=== PATIENT | female | born 1965 | race Caucasian/White ===

== ENCOUNTER 2020-06-26 14:04 | Outpatient (CLI) | payer MEDICARE, MEDICAID, SELFPAY ==
--- NOTE | ~2020-06-26 | MM_ITS ---
EXAMINATION: MM screening [facility] BI w nilda HISTORY: Screening TECHNIQUE: Craniocaudal and mediolateral oblique 3-D tomosynthesis images were obtained and synthetic 2-D images were generated. CAD analysis was submitted and interpreted. COMPARISON: Comparison to multiple prior studies sequentially, with oldest reviewed study dated 08/08. BREAST PARENCHYMAL COMPOSITION: There are scattered areas of fibroglandular density. FINDINGS: There is no evidence of suspicious mass, calcification, or architectural distortion to sugg est malignancy in either breast. There has been no suspicious interval change. IMPRESSION: 1. No mammographic evidence of malignancy. 2. Recommend routine screening mammography in one year. BI-RADS Category 1: Negative Reviewed, dictated and finalized at location A.
== END 2020-06-26 14:05 | disposition home or self-care (01) ==
LOC: ANHIMG 14:08
PROVIDERS: PCP Emergency Medicine; Visit Provider Nurse Practitioner
DX: Z12.31 Encounter for screening mammogram for malignant neoplasm of breast (principal)
CPT/HCPCS: 77063; 77067

== ENCOUNTER 2021-07-15 09:52 | Outpatient (CLI) | payer MEDICARE, MEDICAID, SELFPAY ==
--- NOTE | ~2021-07-15 | MM_ITS ---
EXAMINATION: MM screening [facility] BI w nilda HISTORY: Screening mammogram TECHNIQUE: Craniocaudal and mediolateral oblique 3-D tomosynthesis images were obtained and synthetic 2-D images were generated. CAD analysis was submitted and interpreted. COMPARISON: 06/26/2020, 07/11/2018, 04/15/2017 BREAST PARENCHYMAL COMPOSITION: The breasts are almost entirely fatty. FINDINGS: There is no evidence of suspicious mass, calcification, or architectural distortion to sugg est malignancy in either breast. There has been no suspicious interval change. IMPRESSION: 1. No mammographic evidence of malignancy. 2. Recommend routine screening mammography in one year. BI-RADS Category 1: Negative Reviewed, dictated and finalized at location A.
== END 2021-07-15 09:53 | disposition home or self-care (01) ==
PROVIDERS: PCP Internal Medicine; Visit Provider Internal Medicine
DX: Z12.31 Encounter for screening mammogram for malignant neoplasm of breast (principal)
CPT/HCPCS: 77063; 77067

== ENCOUNTER 2022-03-01 23:58 | Inpatient (IN) | payer MEDICARE, MEDICAID, SELFPAY ==
--- NOTE | ~2022-03-01 | XR_ITS ---
EXAMINATION: XR chest 2V DATE: 03/04/2022 13:45 INDICATION: Pneumonia. TECHNIQUE: Frontal and lateral views of the chest were obtained. COMPARISON: Chest single view 03/02/2022 FINDINGS: There are airspace opacities at the lung bases. No pleural effusion or pneumothorax. Cardio megaly is noted. IMPRESSION: 1. Airspace opacities at the lung bases, likely stable given the difference in patient positioning, c onsistent with atelectasis versus pneumonia. 2. Cardiomegaly. Reviewed, dictated and finalized at location A. IMPRESSION: 1. Airspace opacities at the lung bases, likely stable given the difference in patient positioning, consistent with atelectasis versus pneumonia. 2. Cardiomegaly.
--- NOTE | ~2022-03-01 | XR_ITS ---
EXAMINATION: XR chest 1V portable INDICATION: Shortness of breath TECHNIQUE: Portable AP chest at 0227 hours COMPARISON: None available FINDINGS: There are minimal airspace opacities of the lung bases. No pleural effusion or pneumothorax is identified. The cardiomediastinal silhouette is normal. IMPRESSION: 1. Bibasilar airspace opacities, consistent with atelectasis versus pneumonia. Reviewed, dictated and finalized at location A.
[2022-03-02] VITALS (27 sets, daily range): BP systolic 94–139; BP diastolic 43–77; PULSE 66–120; RESP 16–30; TEMP 36.8–37.4; O2SAT 86–100; BMI 46.8
[2022-03-02 01:17] LABS: Basophils Absolute Auto 0.1 K/mm3 (0.0-0.1); Basophils Percent Auto 0.6 % (0.2-1.2); Eosinophils Percent Auto 0.2 % (0-4.4); Hematocrit 37.4 % (37.0-47.0); Hemoglobin 11.9 g/dL (12.0-15.0); Immature Granulocyte Absolute 0.11 K/mm3 (0.00-0.031); Immature Granulocyte Percent A 0.6 % (0-0.5); Lymphocytes Absolute Auto 1.96 K/mm3 (0.9-3.2); Lymphocytes Percent Auto 10.7 % (18.3-44.2); Mean Corpuscular HGB Conc 31.8 g/dl (32-36); Mean Corpuscular Hemoglobin 32.7 pg (26-34); Mean Corpuscular Volume 102.7 fl (80-100); Mean Platelet Volume 10.4 fl (7.4-10.4); Monocytes Absolute Auto 1.2 K/mm3 (0.1-0.6); Monocytes Percent Auto 6.4 % (2.6-8.5); Neutrophils Absolute Auto 14.9 K/mm3 (1.3-6.7); Neutrophils Percent Auto 81.5 % (45.5-73.1); Platelet Count Result 290 k/mm3 (150-375); Red Blood Count 3.64 M/mm3 (4.2-5.4); Red Cell Distribution Width 14.5 % (11.5-14.5); White Blood Count 18.3 K/mm3 (4.5-10.0)
[2022-03-02 02:15] LABS: Alanine Aminotransferase 24 U/L (4-35); Albumin Level 3.5 g/dL (3.5-5.1); Alkaline Phosphatase 185 U/L (38-126); Anion Gap 6 mmol/L (8-16); Aspartate Amino Transferase 28 U/L (14-36); Bilirubin,Total 1.5 mg/dL (0.2-1.3); Blood Urea Nitrogen 15 mg/dL (7-17); Calcium 8.1 mg/dL (8.4-10.2); Carbon Dioxide 28 mmol/L (22-30); Chloride 98 mmol/L (98-107); Estimated Glomerular Filt Rate 57; Glucose 125 mg/dL (65-110); Sodium 132 mmol/L (137-145)
--- NOTE | 2022-03-02 02:58 | ED.GENADULT ---
HPI - General Adult General Chief complaint: Shortness of Breath/Dyspnea Stated complaint: low o2 sat, cough Time Seen by Provider: 03/02/22 00:45 History of Present Illness HPI narrative: 56-year-old female presenting to the emergency department for evaluation of hypoxia. Patient with history of severe MR and lives in a care facility. Facility states that the patient had a low pulse ox and has had a worsening cough for the last few days. Related Data Home Medications Medication Instructions Recorded Confirmed acetaminophen 325 mg capsule 325 mg PO Q6H PRN 09/25/20 03/02/22 atorvastatin 10 mg tablet 10 mg PO DAILY 09/25/20 03/02/22 bacitracin zinc 500 unit/gram 1 applic TOPICAL DAILY 09/25/20 03/02/22 topical ointment cholecalciferol (vitamin D3) 25 25 mcg PO DAILY 09/25/20 03/02/22 mcg (1,000 unit) capsule dextromethorphan-guaifenesin 10 10 ml PO Q4-6H PRN 09/25/20 03/02/22 mg-100 mg/5 mL oral liquid diphenhydramine HCl 25 mg capsule 25 mg PO Q6H PRN 09/25/20 03/02/22 fluoxetine 10 mg capsule 10 mg PO DAILY 09/25/20 03/02/22 hydrocortisone 1 % topical spray 1 applic TOPICAL BID PRN 09/25/20 03/02/22 montelukast 10 mg tablet 10 mg PO DAILY 09/25/20 03/02/22 nystatin 100,000 unit/gram topical 1 applic TOPICAL BID 09/25/20 03/02/22 powder vitamin B complex 1 tablet PO DAILY 09/25/20 03/02/22 levothyroxine 88 mcg PO DAILY 03/02/22 03/02/22 Allergies Allergy/AdvReac Type Severity Reaction Status Date / Time tetracycline Allergy Mild unknown Verified 03/02/22 00:36 Review of Systems Review of Systems: Patient is nonverbal ROS unobtainable: Yes unobtainable due to mental status PMFSH Social History Social History Smoking status: Never smoker Second hand tobacco smoke exposure: No Alcohol intake: never Substance use: never Spiritual care concerns: No Exam Narrative: APPEARANCE: Well appearing, no pain, no distress, well-nourished. HEAD: normocephalic, atraumatic. EYES: PERRLA/EOMI, conjunctivae clear. NECK: Supple. No adenopathy, no masses. RESPIRATORY: Decreased breath sounds bilaterally. CARDIOVASCULAR: Regular rate and rhythm without murmurs rubs or gallops. ABDOMINAL: Soft, nontender, nondistended, normal bowel sounds MUSCULOSKELETAL: Moves all extremities. Strength/ROM intact, No edema, No calf tenderness. NEURO: Alert. Grossly intact SKIN: Warm, dry. Normal Color Course Course Emergency Course: Patient was hypoxic to 85 to 87% on room air. Improved with oxygenation. Chest x-ray was concerning for a right lower lobe pneumonia. Patient was started on azithromycin and Rocephin. blood cultures are pending. Fever treated with p.o. Tylenol. Case was discussed with the hospitalist and patient was accepted for admission. Patient was stable at time. Vital Signs Vital signs: Vital Signs Temperature 99.0 F 03/02/22 00:02 Pulse Rate 113 H 03/02/22 00:02 Respiratory Rate 16 03/02/22 00:02 Blood Pressure 113/75 03/02/22 00:02 Pulse Oximetry 95 03/02/22 00:02 Temperature 99.4 F 03/02/22 05:20 Pulse Rate 108 H 03/02/22 05:20 Respiratory Rate 24 H 03/02/22 05:20 Blood Pressure 129/71 03/02/22 05:20 Pulse Oximetry 95 03/02/22 05:20 Medical Decision Making Vital Signs Vital Signs: Vital Signs Temperature 99.0 F 03/02/22 00:02 Pulse Rate 113 H 03/02/22 00:02 Respiratory Rate 16 03/02/22 00:02 Blood Pressure 113/75 03/02/22 00:02 Pulse Oximetry 95 03/02/22 00:02 Temperature 99.4 F 03/02/22 05:20 Pulse Rate 108 H 03/02/22 05:20 Respiratory Rate 24 H 03/02/22 05:20 Blood Pressure 129/71 03/02/22 05:20 Pulse Oximetry 95 03/02/22 05:20 Lab Data Lab results reviewed: Yes I reviewed the patient's lab results. Result diagrams: 03/02/22 01:11 03/02/22 01:36 Labs: Lab Results 03/02/22 03/02/22 03/02/22 Range/Units 01:11 01:36 02:54 WBC 18.3 H (4.5-10.0) K/mm3 RBC 3.64 L (4.2-5.4
[2022-03-02 03:35] LABS: Influenza A QL RT-PCR Negative (Negative); Influenza B QL RT-PCR Negative (Negative); SARS-CoV-2 RNA PCR Negative
[2022-03-02] MEDS: ACETAMINOPHEN 325 MG TABLET 650 MG PO (04:35)
--- NOTE | 2022-03-02 05:54 | ADMGEN ---
This patient, Hayde Escobar, was admitted to [facility] Surg Room 332-01at [id number]. Patient/family oriented to hospital policies and general routines including ID bracelet, bed and alarms, visiting hours, pain management, procedures, bathroom and other care routines, personal items, smoking policy, room service/diet, and visiting hours. Information on how to activate the Rapid Response Team has been discussed. Patient/Family are encouraged to report perceived risks to care and to ask questions if they do not understand what they are told or what they should do.
[2022-03-02] MEDS: TOLNAFTATE 1% POWDER 45 GM BTL 1 APPLIC TOPICAL ×2 (10:12→20:10)
[2022-03-02] MEDS: MONTELUKAST SODIUM 10 MG TABLET PO (10:13)
[2022-03-02] MEDS: VITAMIN B COMPLEX CAPSULE 1 CAP PO (10:13)
[2022-03-02] MEDS: ATORVASTATIN 10 MG TABLET PO (10:13)
[2022-03-02] MEDS: FLUoxetine HCL 10 MG CAPSULE PO (10:13)
[2022-03-02] MEDS: CHOLECALCIFEROL 1,000 UNITS TABLET 1000 UNITS PO (10:14)
--- NOTE | 2022-03-02 11:04 | PM.IMHP ---
H&P: HPI History of Present Illness Date/Time: 03/02/22 11:04 Patient is a 56-year-old female with a past medical history of hypothyroidism and severe MR. Patient presented to the hospital due to hypoxia. Patient is a poor historian and record is limited. Patient reportedly had a low pulse ox with a worsening cough for the last several days. While in the emergency department she was noted to be hypoxic on room air at 85-87%. She did have improved oxygenation. Chest x-ray was performed which revealed right lower lobe pneumonia and the patient was started on azithromycin and Rocephin. Blood cultures are pending. Patient also had a fever that was treated with Tylenol in the emergency department. Patient was admitted for further management of any blood. She will be treated with azithromycin Rocephin, breathing treatments. Chief Complaint: Acute hypoxic respiratory failure, community-acquired pneumonia Review of Systems Review of Systems: All systems reviewed & are unremarkable except as noted in HPI and below PMFSH Social History Social History (Updated 03/02/22 @ 11:25 by Prema Funk, [employer] SAL[employer] REPRESENTATIVE) Smoking status: Never smoker Second hand tobacco smoke exposure: No Alcohol intake: never Substance use: never Spiritual care concerns: No Meds Home Medications and Allergies Home Medications Medication Instructions Recorded Confirmed Type acetaminophen 325 mg capsule 325 mg PO Q6H PRN 09/25/20 03/02/22 History atorvastatin 10 mg tablet 10 mg PO DAILY 09/25/20 03/02/22 History bacitracin zinc 500 unit/gram 1 applic TOPICAL DAILY 09/25/20 03/02/22 History topical ointment cholecalciferol (vitamin D3) 25 25 mcg PO DAILY 09/25/20 03/02/22 History mcg (1,000 unit) capsule dextromethorphan-guaifenesin 10 10 ml PO Q4-6H PRN 09/25/20 03/02/22 History mg-100 mg/5 mL oral liquid diphenhydramine HCl 25 mg capsule 25 mg PO Q6H PRN 09/25/20 03/02/22 History fluoxetine 10 mg capsule 10 mg PO DAILY 09/25/20 03/02/22 History hydrocortisone 1 % topical spray 1 applic TOPICAL BID PRN 09/25/20 03/02/22 History montelukast 10 mg tablet 10 mg PO DAILY 09/25/20 03/02/22 History nystatin 100,000 unit/gram topical 1 applic TOPICAL BID 09/25/20 03/02/22 History powder vitamin B complex 1 tablet PO DAILY 09/25/20 03/02/22 History levothyroxine 88 mcg PO DAILY 03/02/22 03/02/22 History Allergies Allergy/AdvReac Type Severity Reaction Status Date / Time tetracycline Allergy Mild unknown Verified 03/02/22 00:36 Vital Signs Vital Signs - 24 hr 03/02/22 00:02 03/02/22 00:19 03/02/22 00:31 Temperature 99.0 F Pulse Rate 113 H 115 H 116 H Respiratory Rate 16 21 H 19 Blood Pressure 113/75 109/56 L 111/58 L Pulse Oximetry 95 93 93 03/02/22 02:20 03/02/22 02:30 03/02/22 02:31 Temperature Pulse Rate 116 H 120 H 117 H Respiratory Rate 28 H 20 20 Blood Pressure 139/70 123/43 L Pulse Oximetry 98 96 94 03/02/22 02:45 03/02/22 03:00 03/02/22 03:10 Temperature Pulse Rate 117 H 114 H Respiratory Rate 21 H 30 H Blood Pressure Pulse Oximetry 93 86 L 98 03/02/22 03:15 03/02/22 03:17 03/02/22 03:30 Temperature Pulse Rate 115 H 116 H 116 H Respiratory Rate 19 18 27 H Blood Pressure 96/58 L Pulse Oximetry 96 92 93 03/02/22 03:45 03/02/22 04:00 03/02/22 04:15 Temperature Pulse Rate 118 H 116 H 119 H Respiratory Rate 25 H 27 H 23 H Blood Pressure Pulse Oximetry 03/02/22 04:30 03/02/22 04:45 03/02/22 05:08 Temperature 98.9 F Pulse Rate 117 H 117 H 66 Respiratory Rate 26 H 24 H 17 Blood Pressure 99/60 L Pulse Oximetry 90 100 03/02/22 05:20 03/02/22 08:00 Temperature 99.4 F 98.2 F Pulse Rate 108 H 100 Respiratory Rate 24 H 20 Blood Pressure 129/71 104/50 L Pulse Oximetry 95 93 Exam Narrative: General: No acute distress. obese Mental Status: Awake, alert, non-verbal Skin: Skin in warm, dry and intact without rashes or lesions. Head: Normocephalic and at
[2022-03-02] MEDS: IPRATROPIUM BR 0.02% INH SOLN 0.5 MG/2.5 ML VIAL INHALATION ×2 (13:52→20:36)
[2022-03-03] VITALS (10 sets, daily range): BP systolic 98–145; BP diastolic 58–81; PULSE 86–111; RESP 16–28; TEMP 36.2–37.2; O2SAT 91–97
[2022-03-03 06:08] LABS: Alanine Aminotransferase 23 U/L (4-35); Albumin Level 3.4 g/dL (3.5-5.1); Alkaline Phosphatase 190 U/L (38-126); Anion Gap 7 mmol/L (8-16); Aspartate Amino Transferase 30 U/L (14-36); Bilirubin,Total 0.6 mg/dL (0.2-1.3); Blood Urea Nitrogen 14 mg/dL (7-17); Calcium 8.3 mg/dL (8.4-10.2); Carbon Dioxide 29 mmol/L (22-30); Chloride 101 mmol/L (98-107); Estimated Glomerular Filt Rate > 60; Glucose 148 mg/dL (65-110); Magnesium 2.2 mg/dL (1.6-2.3); Potassium 4.4 mmol/L (3.4-5.0); Sodium 137 mmol/L (137-145)
[2022-03-03 06:10] LABS: Basophils Absolute Auto 0.1 K/mm3 (0.0-0.1); Basophils Percent Auto 0.8 % (0.2-1.2); Eosinophils Absolute Auto 0.1 K/mm3 (0-0.3); Eosinophils Percent Auto 0.9 % (0-4.4); Hematocrit 38.9 % (37.0-47.0); Hemoglobin 12.4 g/dL (12.0-15.0); Immature Granulocyte Absolute 0.15 K/mm3 (0.00-0.031); Lymphocytes Absolute Auto 1.95 K/mm3 (0.9-3.2); Mean Corpuscular HGB Conc 31.9 g/dl (32-36); Mean Corpuscular Hemoglobin 32.7 pg (26-34); Mean Corpuscular Volume 102.6 fl (80-100); Mean Platelet Volume 10.5 fl (7.4-10.4); Monocytes Percent Auto 6.5 % (2.6-8.5); Neutrophils Absolute Auto 11.6 K/mm3 (1.3-6.7); Neutrophils Percent Auto 77.8 % (45.5-73.1); Platelet Count Result 322 k/mm3 (150-375); Red Blood Count 3.79 M/mm3 (4.2-5.4); Red Cell Distribution Width 14.4 % (11.5-14.5)
[2022-03-03] MEDS: ATORVASTATIN 10 MG TABLET PO (08:35)
[2022-03-03] MEDS: MONTELUKAST SODIUM 10 MG TABLET PO (08:36)
[2022-03-03] MEDS: FLUoxetine HCL 10 MG CAPSULE PO (08:37)
[2022-03-03] MEDS: CHOLECALCIFEROL 1,000 UNITS TABLET 1000 UNITS PO (08:38)
[2022-03-03] MEDS: VITAMIN B COMPLEX CAPSULE 1 CAP PO (08:40)
[2022-03-03] MEDS: TOLNAFTATE 1% POWDER 45 GM BTL 1 APPLIC TOPICAL ×2 (08:41→20:10)
--- NOTE | 2022-03-03 10:04 | PM.IMPN ---
Progress Note: A&P Assessment and Plan (1) Severe mental handicap: Code(s): F72 - Severe intellectual disabilities Status: Acute Assessment and Plan: Sitter, one-to-one (2) Obese: Code(s): E66.9 - Obesity, unspecified Status: Acute Assessment and Plan: Dietary consult (3) Depression: Code(s): F32.A - Depression, unspecified Status: Acute Assessment and Plan: Resume home medications (4) Hypothyroidism: Code(s): E03.9 - Hypothyroidism, unspecified Status: Acute Assessment and Plan: Resume Synthroid (5) Pneumonia: Qualifiers: Laterality: right Lung location: lower lobe of lung Pneumonia type: due to unspecified organism Qualified Code(s): J18.9 - Pneumonia, unspecified organism Code(s): J18.9 - Pneumonia, unspecified organism Status: Acute Assessment and Plan: Monitor vital signs, I&Os, neuro status and patient is a fall risk Follow WBC, serum electrolytes, temperature curves and cultures Send sputum cultures Oxygen via NC; wean as tolerated. Keep SpO2 greater than 88% Ceftriaxone 2 gram IV q24H and Azithromycin 500mg IV q24H DuoNeb q6H and Albuterol q2H PRN P.r.n. Tylenol, Zofran, and melatonin (6) Acute and chronic respiratory failure with hypoxia: Code(s): J96.21 - Acute and chronic respiratory failure with hypoxia Status: Acute Assessment and Plan: SpO2 85-87% in the emergency department, oxygen improved with supplemental oxygen per nasal cannula. --resolved Subjective Date/time seen: 03/03/22 10:04 patient remains nonverbal, this is the patient's baseline. She does to be in acute distress. Able to tolerate meals with assistance. Patient requires a one-to-one sitter. She remains on azithromycin Rocephin, possibly transition to oral antibiotics on 03/04/2022. No acute events reported by RN during the night Review of Systems Review of Systems: All systems reviewed & are unremarkable except as noted in HPI and below Exam Narrative: General: No acute distress. obese Mental Status: Awake, alert, non-verbal Skin: Skin in warm, dry and intact without rashes or lesions. Head: Normocephalic and atraumatic. Eyes: Conjunctivae are clear without exudates or hemorrhage. Sclera is non-icteric. EOM are intact, PERRLA. Ears: The external ear and canal are non-tender and without swelling or discharge. Nose: Nasal mucosa is pink and moist. Septum midline. Nares patent bilaterally. Throat: Oral mucosa pink and moist with good dentition. Tongue midline. Neck: The neck supple without adenopathy. Trachea midline. No JVD. Cardiac: S1 and S2 regular rate and rhythm. No murmurs, gallops, or rubs auscultated. Respiratory: Chest wall symmetric, nontender and without deformity or trauma. Respirations even and unlabored. Lung sounds are diminished to auscultation in all lobes bilaterally without wheezes, rhonchi, or rales. Abdominal: Abdomen soft, round and non-tender to palpation. Bowel sounds present and normoactive in all 4 quadrants. Spine: Neck and back with grossly normal curvature, no deformity in appearance or signs of trauma. Extremities: Upper and lower extremities atraumatic without tenderness or deformity. Full range of motion and muscle strength 4/5 to all extremities bilaterally. Neurological: Full and symmetric motor and light touch sensation bilaterally. Cranial nerves II-XII grossly intact. Objective Data Vital Signs Vital Signs: Vital Signs - 24 hr 03/02/22 12:00 03/02/22 13:52 03/02/22 14:01 Temperature 98.4 F Pulse Rate 82 82 80 Respiratory Rate 21 H 16 16 Blood Pressure 94/56 L Pulse Oximetry 94 03/02/22 16:00 03/02/22 20:36 03/02/22 20:43 Temperature 98.6 F Pulse Rate 90 97 101 H Respiratory Rate 20 18 16 Blood Pressure 113/77 Pulse Oximetry 91 91 03/02/22 22:00 03/03/22 06:00 03/03/22 07:48 Temperature 98.9 F 99 F 99.0 F Pulse Rate 95 108 H 111 H
[2022-03-03] MEDS: LEVOTHYROXINE SODIUM 88 MCG TABLET PO (10:23)
--- NOTE | 2022-03-03 11:58 | PCRCNOTE ---
Window of time for administration has passed. See next scheduled administration.
--- NOTE | 2022-03-03 14:08 | PC.NURSE ---
On 03/03/22, the student, Haroon Prather, provided care and completed [facility] documentation on this patient. I have reviewed the student's documentation and agree with the findings.
[2022-03-03] MEDS: IPRATROPIUM BR 0.02% INH SOLN 0.5 MG/2.5 ML VIAL INHALATION ×2 (15:32→19:52)
[2022-03-04] VITALS (11 sets, daily range): BP systolic 96–135; BP diastolic 58–81; PULSE 81–103; RESP 18–20; TEMP 36.4–36.7; O2SAT 91–98
[2022-03-04 05:46] LABS: Basophils Absolute Auto 0.2 K/mm3 (0.0-0.1); Basophils Percent Auto 1.4 % (0.2-1.2); Eosinophils Absolute Auto 0.2 K/mm3 (0-0.3); Eosinophils Percent Auto 1.8 % (0-4.4); Hematocrit 39.9 % (37.0-47.0); Hemoglobin 12.9 g/dL (12.0-15.0); Immature Granulocyte Absolute 0.22 K/mm3 (0.00-0.031); Immature Granulocyte Percent A 2.1 % (0-0.5); Lymphocytes Absolute Auto 2.15 K/mm3 (0.9-3.2); Lymphocytes Percent Auto 20.1 % (18.3-44.2); Mean Corpuscular HGB Conc 32.3 g/dl (32-36); Mean Corpuscular Hemoglobin 33.2 pg (26-34); Mean Corpuscular Volume 102.8 fl (80-100); Mean Platelet Volume 10.2 fl (7.4-10.4); Neutrophils Absolute Auto 7.1 K/mm3 (1.3-6.7); Neutrophils Percent Auto 65.6 % (45.5-73.1); Platelet Count Result 341 k/mm3 (150-375); Red Blood Count 3.88 M/mm3 (4.2-5.4); Red Cell Distribution Width 14.5 % (11.5-14.5); White Blood Count 10.7 K/mm3 (4.5-10.0)
[2022-03-04 05:59] LABS: Alanine Aminotransferase 31 U/L (4-35); Albumin Level 3.2 g/dL (3.5-5.1); Alkaline Phosphatase 179 U/L (38-126); Anion Gap 5 mmol/L (8-16); Aspartate Amino Transferase 35 U/L (14-36); Bilirubin,Total 0.4 mg/dL (0.2-1.3); Blood Urea Nitrogen 11 mg/dL (7-17); Calcium 8.2 mg/dL (8.4-10.2); Carbon Dioxide 30 mmol/L (22-30); Chloride 101 mmol/L (98-107); Estimated Glomerular Filt Rate > 60; Glucose 135 mg/dL (65-110); Potassium 4.2 mmol/L (3.4-5.0); Sodium 136 mmol/L (137-145)
[2022-03-04] MEDS: LEVOTHYROXINE SODIUM 88 MCG TABLET PO (06:04)
[2022-03-04] MEDS: IPRATROPIUM BR 0.02% INH SOLN 0.5 MG/2.5 ML VIAL INHALATION ×3 (08:00→20:47)
--- NOTE | 2022-03-04 08:25 | PM.IMPN ---
Progress Note: A&P Assessment and Plan (1) Severe mental handicap: Code(s): F72 - Severe intellectual disabilities Status: Acute Assessment and Plan: Sitter, one-to-one Calm and pleasant, receptive to exam No behavior concerns at this time Eating and drinking well per nursing report Urinary incontinence monitored with intake and output (2) Obese: Code(s): E66.9 - Obesity, unspecified Status: Acute Assessment and Plan: Dietary consult Chronic and difficult to treat with mental handicap and learning difficulties (3) Depression: Code(s): F32.A - Depression, unspecified Status: Acute Assessment and Plan: Resume home medications Pleasant no concerns at this time Euthymic mood (4) Hypothyroidism: Code(s): E03.9 - Hypothyroidism, unspecified Status: Acute Assessment and Plan: Resume Synthroid Resume home medications Pleasant no concerns at this time Euthymic mood (5) Pneumonia: Qualifiers: Laterality: right Lung location: lower lobe of lung Pneumonia type: due to unspecified organism Qualified Code(s): J18.9 - Pneumonia, unspecified organism Code(s): J18.9 - Pneumonia, unspecified organism Status: Acute Assessment and Plan: Monitor vital signs, I&Os, neuro status and patient is a fall risk Blood cultures x2 showed no growth. White count dropped from 18.3 to 10.7. No fevers or chills today. Send sputum cultures Oxygen via NC; wean as tolerated. Keep SpO2 greater than 88% Ceftriaxone 2 gram IV q24H for a minimum of 5 days AND Azithromycin 500mg IV q24H for a minimum of 3 days and 3 doses. DuoNeb q6H and Albuterol q2H PRN P.r.n. Tylenol, Zofran, and melatonin Total bilirubin also improved from 1.5 to WNL. COVID and influenza negative. Chest x-ray at admission on 03/02 showed opacites. Started on IV Azithromycin and Rocephin on 03/03, received 2 doses to date. Ceftriaxone 2 gram IV q24H for a minimum of 5 days AND Azithromycin 500mg IV q24H for a minimum of 3 days and 3 doses. Chest x-ray obtained today 03/04 was stable. SpO2 92-98% on room air today, with RR 18. No cough or congestion noted during exam. (6) Acute and chronic respiratory failure with hypoxia: Code(s): J96.21 - Acute and chronic respiratory failure with hypoxia Status: Acute Assessment and Plan: SpO2 85-87% in the emergency department, oxygen improved with supplemental oxygen per nasal cannula. Chest x-ray obtained today 03/04 was stable. SpO2 92-98% on room air today, with RR 18. No cough or congestion noted during exam. --resolved Subjective Date/time seen: 03/04/22 08:25 Hayde was sitting up in a chair today when I went to examine her. She was nonverbal today. She seemed pleasant and did allow me to complete her exam. She would not nod or shake her head to any of my questions. Having incontinence of urine in diapers x2 today, no measurable urine output and no UA obtained. Blood cultures x2 showed no growth. White count dropped from 18.3 to 10.7. No fevers or chills today. Total bilirubin also improved from 1.5 to WNL. COVID and influenza negative. Chest x-ray at admission on 03/02 showed opacites. Started on IV Azithromycin and Rocephin on 03/03, received 2 doses to date. Ceftriaxone 2 gram IV q24H for a minimum of 5 days AND Azithromycin 500mg IV q24H for a minimum of 3 days and 3 doses. Chest x-ray obtained today was stable. SpO2 92-98% on room air today, with RR 18. No cough or congestion noted during exam. She did not appear to have any pain even with palpation, abdomen soft. Likely discharge on 03/07. Review of Systems Review of Systems: All systems reviewed & are unremarkable except as noted in HPI and below ROS unobtainable: Yes unobtainable due to mental status Constitutional: Constitutional: Reports as per HPI, Denies excessive sweating, Denies headache(s), Denies increased appetite, Denies snoring,
[2022-03-04] MEDS: MONTELUKAST SODIUM 10 MG TABLET PO (08:28)
[2022-03-04] MEDS: VITAMIN B COMPLEX CAPSULE 1 CAP PO (08:29)
[2022-03-04] MEDS: ATORVASTATIN 10 MG TABLET PO (08:29)
[2022-03-04] MEDS: CHOLECALCIFEROL 1,000 UNITS TABLET 1000 UNITS PO (08:29)
[2022-03-04] MEDS: TOLNAFTATE 1% POWDER 45 GM BTL 1 APPLIC TOPICAL ×2 (08:29→19:57)
[2022-03-04] MEDS: FLUoxetine HCL 10 MG CAPSULE PO (08:29)
[2022-03-05] VITALS (7 sets, daily range): BP systolic 114; BP diastolic 77; PULSE 88–96; RESP 14–20; TEMP 36.7; O2SAT 97
[2022-03-05] MEDS: IPRATROPIUM BR 0.02% INH SOLN 0.5 MG/2.5 ML VIAL INHALATION ×3 (01:48→13:02)
[2022-03-05 05:51] LABS: Basophils Absolute Auto 0.1 K/mm3 (0.0-0.1); Basophils Percent Auto 1.3 % (0.2-1.2); Eosinophils Absolute Auto 0.2 K/mm3 (0-0.3); Eosinophils Percent Auto 2.3 % (0-4.4); Hematocrit 39.9 % (37.0-47.0); Hemoglobin 12.7 g/dL (12.0-15.0); Immature Granulocyte Absolute 0.24 K/mm3 (0.00-0.031); Immature Granulocyte Percent A 2.6 % (0-0.5); Lymphocytes Absolute Auto 1.86 K/mm3 (0.9-3.2); Lymphocytes Percent Auto 20.4 % (18.3-44.2); Mean Corpuscular HGB Conc 31.8 g/dl (32-36); Mean Corpuscular Hemoglobin 33.1 pg (26-34); Mean Corpuscular Volume 103.9 fl (80-100); Mean Platelet Volume 10.2 fl (7.4-10.4); Monocytes Absolute Auto 0.7 K/mm3 (0.1-0.6); Monocytes Percent Auto 7.3 % (2.6-8.5); Neutrophils Percent Auto 66.1 % (45.5-73.1); Platelet Count Result 378 k/mm3 (150-375); Red Blood Count 3.84 M/mm3 (4.2-5.4); Red Cell Distribution Width 14.3 % (11.5-14.5); White Blood Count 9.1 K/mm3 (4.5-10.0)
[2022-03-05 05:59] LABS: Alanine Aminotransferase 27 U/L (4-35); Albumin Level 3.1 g/dL (3.5-5.1); Alkaline Phosphatase 139 U/L (38-126); Anion Gap 5 mmol/L (8-16); Aspartate Amino Transferase 39 U/L (14-36); Bilirubin,Total 0.5 mg/dL (0.2-1.3); Blood Urea Nitrogen 10 mg/dL (7-17); Calcium 7.9 mg/dL (8.4-10.2); Carbon Dioxide 30 mmol/L (22-30); Chloride 100 mmol/L (98-107); Estimated Glomerular Filt Rate > 60; Glucose 135 mg/dL (65-110); Potassium 4.8 mmol/L (3.4-5.0); Sodium 135 mmol/L (137-145)
[2022-03-05] MEDS: LEVOTHYROXINE SODIUM 88 MCG TABLET PO (06:12)
[2022-03-05] MEDS: FLUoxetine HCL 10 MG CAPSULE PO (08:48)
[2022-03-05] MEDS: ATORVASTATIN 10 MG TABLET PO (08:48)
[2022-03-05] MEDS: MONTELUKAST SODIUM 10 MG TABLET PO (08:48)
[2022-03-05] MEDS: VITAMIN B COMPLEX CAPSULE 1 CAP PO (08:48)
[2022-03-05] MEDS: CHOLECALCIFEROL 1,000 UNITS TABLET 1000 UNITS PO (08:48)
[2022-03-05] MEDS: TOLNAFTATE 1% POWDER 45 GM BTL 1 APPLIC TOPICAL (08:48)
--- NOTE | 2022-03-05 09:43 | PM.DS ---
DS: Admitting Diagnosis Discharge Date 03/05/2022 Admitting Diagnosis Pneumonia DS: Discharge Diagnosis Discharge Diagnosis (1) Acute and chronic respiratory failure with hypoxia: Code(s): J96.21 - Acute and chronic respiratory failure with hypoxia Status: Resolved Assessment and Plan: Resolved. Patient was hypoxic on presentation with SpO2 85-87%, felt to be secondary to pneumonia. She did require 2 L supplemental O2 briefly on admission but was able to be weaned to room air and maintained adequate oxygen saturations. (2) Pneumonia: Qualifiers: Laterality: right Lung location: lower lobe of lung Pneumonia type: due to unspecified organism Qualified Code(s): J18.9 - Pneumonia, unspecified organism Code(s): J18.9 - Pneumonia, unspecified organism Status: Acute Assessment and Plan: Presented with increased shortness of breath. CXR on presentation showed bibasilar airspace opacities. She was admitted to the hospitalist service and treated with IV ceftriaxone and azithromycin for community-acquired pneumonia. She was able to be weaned from oxygen. COVID-19 testing was negative. Influenza negative. Supportive care provided. Preliminary blood cultures negative after 4 days, will monitor final cultures. Follow-up CXR on 413 showed stable opacities. Clinically patient was improved. Continue p.o. cefdinir to complete 7 days and p.o. azithromycin to complete 5 days. (3) Severe mental handicap: Code(s): F72 - Severe intellectual disabilities Status: Acute Assessment and Plan: Chronic, unchanged. Patient [facility] in a prison. She is nonverbal. (4) Depression: Code(s): F32.A - Depression, unspecified Status: Acute Assessment and Plan: No issues during hospitalization. Continue home fluoxetine (5) Hypothyroidism: Code(s): E03.9 - Hypothyroidism, unspecified Status: Acute Assessment and Plan: Continue home levothyroxine DS: Summary Hospital Course Hospital Course: Date of service: 03/02/2022 Date of discharge: 03/05/2022 Hayde Escobar is a 56-year-old female with a history of hypothyroidism and mental handicap who is nonverbal at baseline presented to the ED on 03/02/2022 [facility] for evaluation of hypoxia with worsening for a couple days. On presentation she was satting 85-87% on room air and improved with supplemental oxygen. She was admitted to the hospitalist service for further evaluation and management. Please see above for further details. She had clinical improvement with antibiotic therapy. She was feeling better and based on overall improvement, she was determined to no longer require inpatient care and was discharged in hemodynamically stable condition on 03/05/2022. Status at Discharge Overall status at discharge: patient is progressing back to baseline Time Spent with Patient Time attestation: Total time spent providing and/or coordinating discharge services: 45 minutes Time spent: Greater than 30 minutes Exam Narrative: General: Obese, well-appearing 56 year-old female, sitting in a chair by the bedside, comfortable, NARD Neuro: awake, alert, patient is nonverbal and does not respond to any questions, no focal neuro deficits noted HEENMT: normocephalic, atraumatic, EOMI, sclerae anicteric Respiratory: clear to auscultation bilaterally, nonlabored breathing Cardio: regular rate, regular rhythm with S1-S2 Abdomen: nondistended, normoactive bowel sounds, soft, nontender to palpation Extremities: no edema or erythema Skin: no rashes or lesions, warm and dry Psych: Pleasant, cooperative DS: Data Data Completed and Pending Labs on day of discharge: Labs from last 24 hours 03/05/22 03/05/22 05:23 05:23 WBC 9.1 RBC 3.84 L Hgb 12.7 Hct 39.9 MCV 103.9 H MCH 33.1 MCHC 31.8 L RDW 14.3 Plt Count 378 H MPV 10.2 Immature Gran % (Auto)
== END 2022-03-05 13:40 | disposition home or self-care (01) | DRG 193 ==
LOC: ANHED 03-02 04:30 → ANH3MEDSUR 03-02 04:39
PROVIDERS: Nurse Practitioner Family; Admitting Provider Internal Medicine; Emergency Provider Emergency Medicine; PCP Internal Medicine; Visit Provider Family Medicine
DX: J18.9 Pneumonia, unspecified organism (principal); J96.21 Acute and chronic respiratory failure with hypoxia; F72 Severe intellectual disabilities; Z68.42 Body mass index [BMI] 45.0-49.9, adult; E03.9 Hypothyroidism, unspecified; E66.9 Obesity, unspecified; F32.A Depression, unspecified; R32 Unspecified urinary incontinence; Z20.822 Contact with and (suspected) exposure to COVID-19
CPT/HCPCS: 36415; 71045; 71046; 80053; 83735; 85025; 87040; 87502; 94640; 99285; A9270; C9803; J0456; J0696; U0003; U0005

== ENCOUNTER 2022-08-20 09:32 | Outpatient (CLI) | payer MEDICARE, MEDICAID, SELFPAY ==
--- NOTE | ~2022-08-20 | MM_ITS ---
EXAMINATION: MM screening [facility] BI w nilda HISTORY: Screening mammogram TECHNIQUE: Craniocaudal and mediolateral oblique 3-D tomosynthesis images were obtained and synthetic 2-D images were generated. CAD analysis was submitted and interpreted. COMPARISON: 07/11/2021, 06/26/2020, 07/11/2018 bilateral screening mammogram examinations BREAST PARENCHYMAL COMPOSITION: The breasts are almost entirely fatty. FINDINGS: There is no evidence of suspicious mass, calcification, or architectural distortion to sugg est malignancy in either breast. There has been no suspicious interval change. IMPRESSION: 1. No mammographic evidence of malignancy. 2. Recommend routine screening mammography in one year. BI-RADS Category 1: Negative Reviewed, dictated and finalized at location A.
== END 2022-08-20 09:33 | disposition home or self-care (01) ==
PROVIDERS: PCP Internal Medicine; Visit Provider Internal Medicine
DX: Z12.31 Encounter for screening mammogram for malignant neoplasm of breast (principal)
CPT/HCPCS: 77063; 77067

== ENCOUNTER 2023-05-06 10:46 | Emergency (ER) | payer MEDICARE, MEDICAID, SELFPAY ==
[2023-05-06 10:58] VITALS: BP 136/77; PULSE 68; RESP 16; TEMP 36.2; O2SAT 100
--- NOTE | 2023-05-06 11:15 | ED.EYEPROB ---
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 Denies purulent discharge, but does report some tearing. Patient has history of Alzheimer's, severe intellectual disability and lives in a intermediate. She is nonverbal. Medical history also reports that she has allergic rhinitis and, ?ocular allergies?. Patient takes Singulair and p.r.n. diphenhydramine for her allergy symptoms. She was recently on a 10 day course of Claritin for her allergies as well, but this ended 3 days ago. Related Data Home Medications Medication Instructions Recorded Confirmed acetaminophen 325 mg capsule 325 mg PO Q6H PRN Pain 09/25/20 05/06/23 atorvastatin 10 mg tablet 10 mg PO DAILY 09/25/20 05/06/23 bacitracin zinc 500 unit/gram 1 applic topical DAILY 09/25/20 05/06/23 topical ointment (Antibiotic (bacitracin zinc)) cholecalciferol (vitamin D3) 25 25 mcg PO DAILY 09/25/20 05/06/23 mcg (1,000 unit) capsule dextromethorphan-guaifenesin 10 10 ml PO Q4-6H PRN Cold Symptoms 09/25/20 05/06/23 mg-100 mg/5 mL oral liquid (Robafen DM Cough) diphenhydramine HCl 25 mg capsule 25 mg PO Q6H PRN Allergy Symptoms 09/25/20 05/06/23 (Allergy (diphenhydramine)) fluoxetine 10 mg capsule 10 mg PO DAILY 09/25/20 05/06/23 hydrocortisone 1 % topical spray 1 applic topical BID PRN Itching 09/25/20 05/06/23 (Anti-Itch (hydrocortisone)) montelukast 10 mg tablet 10 mg PO DAILY 09/25/20 05/06/23 nystatin 100,000 unit/gram topical 1 applic topical BID 09/25/20 05/06/23 powder vitamin B complex (B 1 tablet PO DAILY 09/25/20 05/06/23 Complex-Vitamin B12 tablet) levothyroxine 88 mcg tablet 88 mcg PO DAILY 03/02/22 05/06/23 Allergies Allergy/AdvReac Type Severity Reaction Status Date / Time tetracycline Allergy Mild unknown Verified 05/06/23 11:02 Review of Systems Review of Systems: CONSTITUTIONAL: Denies body aches, fever, chills, or sweats. EYES: Denies visual changes, discharge.+ right eye redness ENT: Denies rhinorrhea, congestion, sore throat, or otalgia. CARDIOVASCULAR: Denies chest pain, palpitations, or edema. RESPIRATORY: Denies cough or dyspnea. GASTROINTESTINAL: Denies abdominal pain, nausea, vomiting, or diarrhea. GENITOURINARY: Denies dysuria or hematuria. SKIN: Denies rash, itching, or wounds. MUSCULOSKELETAL: Denies back pain, joint pain, or myalgia. NEUROLOGIC: Denies headache, numbness, tingling, or weakness. PSYCH: Denies depression or anxiety. [facility] Past Medical History Medical History (Updated 05/06/23 @ 11:22 by Adina Simms, INTERNETWORKING TECHNICIAN, ) Allergic rhinitis Alzheimers disease Bilateral cataracts Hyperlipidemia Osteoporosis Trichotillomania Social History Social History Smoking status: Never smoker Second hand tobacco smoke exposure: No Alcohol intake: never Substance use: never Spiritual care concerns: No Comments At time of signature, I have reviewed and agree with nursing past medical, surgical, social and family history unless otherwise noted. Please see nursing chart for further information. There is no relevant family history pertinent to the presenting complaint Exam Narrative: GENERAL: Well-appearing, well-nourished, and in no acute distress. HEAD: Normocephalic, atraumatic. EYES: EOMI. PERRL. Left eye normal. Right eye: Moderately injected conjunctiva without active drainage. Lids and lashes normal. ENT: Mucous membranes pink and moist. Nares clear. No rhinorrhea. NECK: Normal AROM. CHEST: No respiratory distress. EXTREMITIES: Normal range of motion. No edema. SKIN: Warm, dry, no rash. Capillary refill
== END 2023-05-06 11:33 | disposition home or self-care (01) ==
PROVIDERS: Emergency Provider Nurse Practitioner; PCP Internal Medicine
DX: H10.31 Unspecified acute conjunctivitis, right eye (principal); G30.9 Alzheimer's disease, unspecified; F02.80 Dementia in other diseases classified elsewhere, unspecified severity, without behavioral disturbance, psychotic disturbance, mood disturbance, and anxiety; H26.9 Unspecified cataract; E78.5 Hyperlipidemia, unspecified; M81.0 Age-related osteoporosis without current pathological fracture
CPT/HCPCS: 99213; G0463

== ENCOUNTER 2024-02-29 10:32 | Outpatient (CLI) | payer MEDICARE, SELFPAY ==
--- NOTE | ~2024-02-29 | MM_ITS ---
EXAMINATION: MM screening kassandra BI w nilda HISTORY: Screening mammogram TECHNIQUE: Craniocaudal and mediolateral oblique 3-D tomosynthesis images were obtained and synthetic 2-D images were generated. CAD analysis was submitted and interpreted. COMPARISON: 08/20/2022, 07/11/2021 bilateral screening mammogram examinations BREAST PARENCHYMAL COMPOSITION: The breasts are almost entirely fatty. FINDINGS: There is no evidence of suspicious mass, calcification, or architectural distortion to sugg est malignancy in either breast. There has been no suspicious interval change. IMPRESSION: 1. No mammographic evidence of malignancy. 2. Recommend routine screening mammography in one year. BI-RADS Category 1: Negative Reviewed, dictated and finalized at location A.
== END 2024-02-29 10:33 | disposition home or self-care (01) ==
PROVIDERS: PCP Internal Medicine; Visit Provider Nurse Practitioner Obstetrics & Gynecology
DX: Z12.31 Encounter for screening mammogram for malignant neoplasm of breast (principal)
CPT/HCPCS: 77063; 77067

== ENCOUNTER 2024-12-25 16:41 | Emergency (ER) | payer MEDICARE, MEDICAID, SELFPAY ==
--- NOTE | ~2024-12-25 | XR_ITS ---
EXAMINATION: XR chest 1V Exam Date/Time: 12/25/2024 17:30 [employer]ER AND [employer] WORKER HISTORY: cough/sob, 1 VIEW DUE TO PT STATUS Comparison: 03/04/2022. RESULT: Lines, tubes, and devices: None. Lungs and pleura: Mild diffuse reticular opacities with indistinct vessels and cuffing. Cardiomediastinal silhouette: Stable. Other: No acute osseous or upper abdominal finding. IMPRESSION: Mild interstitial edema. Reviewed, dictated and finalized at location K. TER AND [employer]UCC[employer] WORKER IMPRESSION: Mild interstitial edema.
[2024-12-25 17:11] VITALS: BP 156/110; PULSE 72; RESP 20; TEMP 36.1; O2SAT 98
--- NOTE | 2024-12-25 17:24 | ED_ITS ---
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 Caregiver reports that she has developed shortness of breath with exertion today. Has had a cough for un unknown amount of time. Cough sounds wet productive. Denies any known fever, chills, or body aches. MD elicited complaint: cough, nasal congestion and other (Shortness of breath) Related Data Home Medications ?Medication ?Instructions ?Recorded ?Confirmed ?Last Taken ?Type acetaminophen 325 mg capsule 325 mg PO Q6H PRN Pain 09/25/20 05/06/23 Unknown History atorvastatin 10 mg tablet 10 mg PO DAILY 09/25/20 05/06/23 Unknown History bacitracin zinc 500 unit/gram 1 applic topical DAILY 09/25/20 05/06/23 Unknown History topical ointment (Antibiotic (bacitracin zinc)) cholecalciferol (vitamin D3) 25 25 mcg PO DAILY 09/25/20 05/06/23 Unknown History mcg (1,000 unit) capsule dextromethorphan-guaifenesin 10 10 ml PO Q4-6H PRN Cold Symptoms 09/25/20 05/06/23 Unknown History mg-100 mg/5 mL oral liquid (Robafen DM Cough) diphenhydramine HCl 25 mg capsule 25 mg PO Q6H PRN Allergy Symptoms 09/25/20 05/06/23 Unknown History (Allergy (diphenhydramine)) fluoxetine 10 mg capsule 10 mg PO DAILY 09/25/20 05/06/23 Unknown History hydrocortisone 1 % topical spray 1 applic topical BID PRN Itching 09/25/20 05/06/23 Unknown History (Anti-Itch (hydrocortisone)) montelukast 10 mg tablet 10 mg PO DAILY 09/25/20 05/06/23 Unknown History nystatin 100,000 unit/gram topical 1 applic topical BID 09/25/20 05/06/23 Unknown History powder vitamin B complex (B 1 tablet PO DAILY 09/25/20 05/06/23 Unknown History Complex-Vitamin B12 tablet) levothyroxine 88 mcg tablet 88 mcg PO DAILY 03/02/22 05/06/23 Unknown History divalproex 125 mg capsule,delayed mg PO 12/25/24 Unknown History release sprinkle fluoxetine 20 mg capsule mg 12/25/24 Unknown History levothyroxine 100 mcg tablet mcg 12/25/24 Unknown History Allergies Allergy/AdvReac Type Severity Reaction Status Date / Time tetracycline Allergy Mild unknown Verified 12/25/24 17:20 Review of Systems Review of Systems: Pertinent positives per HPI. Patient denies any fever, chills, rash, headache, visual changes, dizziness, chest pain, palpitations, nausea, vomiting, diarrhea, constipation, abdominal pain, or any urinary issues. [facility] Past Medical History Medical History Allergic rhinitis Osteoporosis Bilateral cataracts Trichotillomania Hyperlipidemia Alzheimers disease Social History Social History Smoking status: Never smoker Second hand tobacco smoke exposure: No Alcohol intake: never Substance use: never Spiritual care concerns: No Comments At the time of my signature, I reviewed and agree with the nursing past medical, surgical, social, and family history. There is no relevant family history pertinent to the patient complaint. Exam Narrative: General: Well-developed, obese, in no apparent distress Head: Normocephalic, atraumatic Eyes: Pupils equally round and reactive to light bilaterally, EOM intact, sclera and conjunctive clear, no discharge, lids normal Ears: TMs intact and clear, ear canals clear, no drainage, grossly hearing normal. Nose: Nares patent, clear nasal discharge, no inflammation, no sinus tenderness. Mouth: Oral pharynx without lesions or masses, good dentition, MMM. Neck: Supple, trachea midline, no enlargement of anterior or posterior cervical nodes, no thyroid masses or goiter palpable. Cardio: Regular rate and rhythm, s1 and s2 normal, no murmur appreciated. Resp: Diminished breath sounds, no rhonchi, rales, wheezing or rubs Course Course Emergency Course: Portions of this record may have been created with voice recognition software. Level of Care: Express Care Visit Vital Signs Vital signs: Vital Signs Temperature 36.1 C L 12/25/24 17:11 Pulse Rate 72 12/25/24 17:11 Respiratory Rate 20 12/25/24 17:11 Blood Pressure 156/110 H 12/25/24 17:11 Pulse Oximetry 98 12/25/24 17:11 Temperature 36.1 C L 12/25/24 17:11 Pulse Rate 72 12/25/24 17:11 Respiratory Rate 20 12/25/24 17:11 Blood Pressure 156/110 H 12/25/24 17:11 Pulse Oximetry 98 12/25/24 17:11 Vital signs reviewed Transfer Transfered to: [facility] Transportation: Other Transfer rationale: Shortness of breath on exertion, mild interstitial edema, trace pitting lower extremity edema, cough Accepting physician: Dr. Santiago Transfer comments: private car MDM - URI/Sore Throat MDM Narrative Medical decision making narrative: At the time of visit patient is resting comfortably on the exam table. Patient appears to be nontoxic. Labs: COVID and Influenza testing was performed. Testing was negative in the clinic today Diagnostics: Chest x-ray shows mild interstitial edema Plan: Patient is having shortness of breath, bilateral lower edema, mild interstitial edema. Recommend transfer to the ER for further evaluation. Discussed case with Dr. Santiago at [facility] and he accepts patient for transfer Differential Diagnosis Differential diagnosis: Likely upper respiratory infection, otitis media, sinusitis, viral infection, bronchitis, influenza, pharyngitis and other (COVID) Lab Data Labs: Lab Results 12/25/24 Range/Units 17:38 POC Influenza A Ag Negative (Negative) POC Influenza B Ag Negative (Negative) POC SARS CoV-2 Ag Negative (Negative) Discharge Plan Discharge Clinical Impression: Acute dyspnea, Cough, Bilateral edema of lower extremity, Interstitial edema Patient Disposition: Acute Care Hospital Condition: Stable Patient Language: Cameroonian Prescriptions: No Action ciprofloxacin HCl 0.3 % drops 1 drp EACH EYE Q4H 5 Days Qty: 10 0RF Rx Instructions: administer while awake loratadine 10 mg tablet 10 mg PO DAILY Qty: 30 0RF levothyroxine 100 mcg tablet fluoxetine 20 mg capsule divalproex 125 mg capsule, delayed rel sprinkle PO fluoxetine 10 mg capsule 10 mg PO DAILY vitamin B complex [B Complex-Vitamin B12] Tablet 1 tablet PO DAILY cholecalciferol (vitamin D3) 25 mcg (1,000 unit) capsule 25 mcg PO DAILY atorvastatin 10 mg tablet 10 mg PO DAILY montelukast 10 mg tablet 10 mg PO DAILY nystatin 100,000 unit/gram powder 1 applic topical BID acetaminophen 325 mg capsule 325 mg PO Q6H PRN (Reason: Pain) bacitracin zinc [Antibiotic (bacitracin zinc)] 500 unit/gram ointment 1 applic topical DAILY diphenhydramine HCl [Allergy (diphenhydramine)] 25 mg capsule 25 mg PO Q6H PRN (Reason: Allergy Symptoms) Anti-Itch (HC) 1 % aerosol,spray 1 applic topical BID PRN (Reason: Itching) dextromethorphan-guaifenesin [Robafen DM Cough] 10-100 mg/5 mL liquid 10 ml PO Q4-6H PRN (Reason: Cold Symptoms) levothyroxine 88 mcg tablet 88 mcg PO DAILY Follow-up/Referrals: PHYSICIAN,SUPERVISOR BILLPOSTING [Primary Care Provider] - Time of Disposition: 18:03 Quality NIHSS Nursing Documentation ED NIHSS nursing documentation: reviewed/agree
[2024-12-25 17:40] LABS: EDCOVIDSCREEN Negative (Negative); EDINFLUASCREEN Negative (Negative); EDINFLUBSCREEN Negative (Negative)
== END 2024-12-25 17:55 | disposition short-term general hospital (02) ==
PROVIDERS: Emergency Provider Nurse Practitioner Family
DX: R06.00 Dyspnea, unspecified (principal); R05.9 Cough, unspecified; R60.0 Localized edema; M81.0 Age-related osteoporosis without current pathological fracture; E78.5 Hyperlipidemia, unspecified; G30.9 Alzheimer's disease, unspecified; F02.80 Dementia in other diseases classified elsewhere, unspecified severity, without behavioral disturbance, psychotic disturbance, mood disturbance, and anxiety; Z20.822 Contact with and (suspected) exposure to COVID-19
CPT/HCPCS: 71045; 87426; 87804; 99213; G0463

== ENCOUNTER 2025-09-13 09:07 | Outpatient (CLI) | payer MEDICARE, MEDICAID, SELFPAY ==
--- OUTSIDE RECORDS SUMMARY | 2025-09-13 09:42 | XMS_ITS | Clinical Summary ---
Author Organization [facility] Care Team Providers Care Glove Finisher Name Role Phone Yossi Cummings MD Primary Care Provider Allergies Active Allergy Reactions Criticality Noted Date Comments Tetracycline Unknown 10/17/2019 Medications FLUoxetine (PROzac) 10 MG Capsule 0 Active atorvastatin (LIPITOR) 10 MG Tablet 0 Active nystatin [id number] UNIT/GM Powder 1 Active Vitamin D3 1000 UNIT Tablet Take 25 mcg by mouth daily. Active loratadine (CLARITIN) 10 MG Tablet Take 1 Tablet by mouth daily. 10 Tablet 3 3 Active donepezil (ARICEPT) 5 MG Tablet Take 1 Tablet by mouth nightly. 90 Tablet 3 3 Active Misc. Devices [facility] Bed-1 DX- Impaired gait/mobility (Z74.09) 1 Each 3 Active acetaminophen (TYLENOL) 500 MG Tablet Take 500 mg by mouth every 4 hours as needed. Active furosemide (LASIX) 20 MG Tablet Take 1 Tablet by mouth daily. In am 90 Tablet 1 5 Active levothyroxine (SYNTHROID) 75 MCG TabletIndications: Other specified hypothyroidism Take 1 Tablet by mouth daily. 90 Tablet 3 5 Active divalproex (DEPAKOTE SPRINKLE) 125 MG Capsule Delayed Release Sprinkle Take 125 mg by mouth 2 times daily. [address] in affected eye(s) every 6 hours as needed. Active diphenhydrAMINE (BENADRYL) 25 MG Capsule Take 25 mg by mouth every 6 hours as needed. Active Ndtiualldlqrt-KB-P G (TUSSIN CF PO) Take 10 mg by mouth every 4 hours as needed. Active HYDROCORTISONE EX 1 % by Apply externally route every 6 hours as needed. Active Cyanocobalamin (B-12 PO) Take 500 mcg by mouth daily. Active Active Problems Problem Noted Date Diagnosed Date Abnormality of plasma protein 07/10/2025 Thrombocytosis 06/22/2025 Bilateral lower extremity edema 02/26/2025 Allergic rhinitis 07/10/2021 Down syndrome 12/06/2020 Other specified hypothyroidism 10/17/2019 Severe intellectual disabilities 10/17/2019 Other hyperlipidemia 10/17/2019 Trichotillomania 10/17/2019 Dysthymic disorder 10/17/2019 Conjunctivitis 10/17/2019 Encounters Date Type Department Care Team Description 07/27/2025 Telephone [facility] [place] [address] [place] [address] Usha Pappas, PAC 07/26/2025 Speech Therapy [facility] [address], [address] [address] Lilia Griedr, [facility] WAISTLINE JOINER 07/26/2025 Telephone [facility] [place] [address] [place] [address] Usha Pappas, PAC 07/17/2025 Telephone [facility] [place] [address] [place] [address] Yossi Cummings MD 07/12/2025 Documentation Only [facility] [place] [address] Yossi Cummings MD 07/12/2025 Telephone [facility] [place] [address] [place] [address] Yossi Cummings MD 07/10/2025 1:20 PM CDT Office Visit [facility] On[facility] [address] [place] [address] Mary Spears, PATTI Thrombocytosis (Primary Dx); Down syndrome; Abnormality of plasma protein Discharge Disposition: Discharged to home or Selfcare 07/10/2025 Travel 07/06/2025 11:00 AM CDT Office Visit [facility] [place] [address] [place] [address] Richard Clark, PAC Decreased appetite (Primary Dx); Down syndrome; Severe intellectual disabilities Discharge Disposition: Discharged to home or Selfcare 07/06/2025 Travel 06/26/2025 Telephone [facility] [address] [place] [phone] Yossi Cummings MD Advice Only 06/22/2025 9:40 AM CDT [facility] [address] [place] [address] Mary Spears PAC Thrombocytosis Discharge Disposition: Discharged to home or Selfcare 06/22/2025 9:20 AM CDT Initial Consult [facility] On[facility] Services [address] [place] [address] Mary Spears PAC Thrombocytosis (Primary Dx) Discharge Disposition: Discharged to home or Selfcare 06/22/2025 Travel 06/18/2025 9:00 AM CDT [facility] [address], [address] [place] [address] Usha Pappas, PAC Lilia Grider, [facility] WAISTLINE JOINER Dysphagia, unspecified type (Primary Dx); Eating problem Discharge Disposition: Discharged to home or Selfcare 06/18/2025 Plan of Care [facility]ation [facility] [address] [place] [address] 06/18/2025 Travel from Last 3 Months Immunizations Immunization Administration Dates Next Due Influenza Vaccine greater than 3 yrs 08/25/2023, 10/17/2019 Influenza Vaccine, Quadrivalent, PF 08/22,08/26/2021,09/10/2020,2017,09/23/2017 Influenza,Split Virus,Trivalent,Injectable,PF 09/18/2024 Family History Medical History Relation Name Comments No Known Problems Sister Relation Name Status Comments Father Mother Sister Alive Social History Tobacco Use Types Packs/Day Years Used Date Smoking Tobacco: Never Passive Smoke Exposure: Never Smokeless Tobacco: Never Tobacco Cessation:Counseling Given: Not Answered Alcohol Use Standard Drinks/Week Comments Never 0 (1 standard drink = 0.6 oz pur e alcohol) [facility] Utilities Answer Date Recorded In the past 12 months has [employer], gas, oil, or water [employer] threatened to shut off services in your home? Patient unable to answer 03/09/2024 Social Connection and Isolation Panel Answer Date Recorded In a typical week, how many times do you talk on the phone with family, friends, or neighbors? Patient unable to answer 03/09/2024 How often do you get togethe r with friends or relatives? Patient unable to answer 03/09/2024 How often do you attend chur ch or jew services? Patient unable to answer 03/09/2024 Do you belong to any clubs o r organizations such as shinto groups, unions, fraternal or athletic groups, or school groups? Patient unable to answer 03/09/2024 How often do you attend meet ings of the clubs or organizations you belong to? Patient unable to answer 03/09/2024 Are you , , di vorced, , never , or living with a partner? Patient unable to answer 03/09/2024 AUDIT-C Answer Date Recorded Q1: How often do you have a drink containing alcohol? Patient unable to answer 03/09/2024 Q2: How many drinks containi ng alcohol do you have on a typical day when you are drinking? Patient unable to answer Q3: How often do you have si x or more drinks on one occasion? Patient unable to answer 03/09/2024 Overall Financial Resource Strain (CARDIA) Answe r Date Recorded How hard is it for you to pa y for the very basics like food, housing, medical care, and heating? Patient unable to answer 03/09/2024 PHQ-2 Answer Date Recorded Total Score - Questions 1-9 0 02/20 [facility] - Occupational Stress Questionnaire Answer Date Recorded Do you feel stress - tense, restless, nervous, or anxious, or unable to sleep at night because your mind is troubled all the time - these days? Patient unable to answer 03/09/2024 Exercise Vital Sign Answer Date Recorde d On average, how many days pe r week do you engage in moderate to strenuous exercise (like a brisk walk)? Patient unable to answer 03/09/2024 On average, how many minutes do you engage in exercise at this level? Patient unable to answer 03/09/2024 Hunger Vital Sign Answer Date Recorded Within the past 12 months, y ou worried that your food would run out before you got the money to buy more. Patient unable to answer 03/09/2024 Within the past 12 months, t he food you bought just didn't last and you didn't have money to get more. Patient unable to answer 03/09/2024 PRAPARE - Transportation Answer Date Re corded In the past 12 months, has l ack of transportation kept you from medical appointments or from getting medications? Patient unable to answer 03/09/2024 In the past 12 months, has l ack of transportation kept you from meetings, work, or from getting things needed for daily living? Patient unable to answer 03/09/2024 Housing Stability Vital Sign Answer Femi e Recorded In the last 12 months, was t here a time when you were not able to pay the mortgage or rent on time? Patient unable to answer 03/09/2024 Number of Places Lived in the Last Year Not on f ile 03/09/2024 In the last 12 months, was t here a time when you did not have a steady place to sleep or slept in a penitentiary (including now)? Patient unable to answer 03/09/2024 Sexually Active Control Partners Comments Never Comments No Sex and Gender Information Value Date Recorded Sex Assigned at Not on file Legal Sex Female 11:28 AM CDT Gender Identity Not on file Sexual Orientation Not on file Last Filed Vital Signs Vital Sign Reading Time Taken Comments Blood Pressure 104/66 07/10/2025 1:27 PM CDT Pulse 73 07/10/2025 1:27 PM CDT Temperature 36.7 C (98.1 F) 07/10/2025 1:27 PM CDT Respiratory Rate 18 07/10/2025 1:27 PM CDT Oxygen Saturation 97% 07/10/2025 1:27 PM CDT Inhaled Oxygen Concentration - - Weight 83 kg (183 lb) 07/10/2025 1:27 PM CDT Height 139.7 cm (4' 7) 03/31/2025 11:23 AM CDT Body Mass Index 42.53 03/31/2025 11:23 AM CDT Plan of Treatment Upcoming Encounters Date Type Department Care Team (Late st Contact Info) Description 10/08/2025 11:20 AM ASSEMBLY 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 ROBOT OPERATOR Office Visit [facility] - [place] [address] [place] [phone] Yossi Cummings MD [address] [place] [address] 10/11/2025 1:20 PM ASSEMBLY LINE ROBOT OPERATOR [facility] [address] [place] [address] Mary Spears Kelsey, [facility] [address] [place] [address] Discharge Disposition: Discharged to home or Selfcare Health Maintenance Due Date Last Done Comments Hepatitis C Virus (HCV) Screening 1965 Down Syndrome: Karyotyping Documentation 1963 Down Syndrome: Echocardiogram 1963 Down Syndrome: Eye Exam 1964 Down Syndrome: Hearing Exam 1964 Down Syndrome: Sleep Study 1966 Medicare Initial AWV [id number] 11/22/1984 HPV/Cotest 1993 Cologuard 2008 Immunochemical Fecal Occult Blood 2008 Pneumococcal Immunization (50+ years) (1 of 1 - PCV) 2013 Zoster Immunization (1 of 2) 2013 Respiratory Syncytial Virus (RSV) Immunization (Adult) (1 - Risk 60-74 years 1-dose series) 2023 Mammogram 02/28/2025 02/29/2024, 07/24, 08/20/2022 Influenza Immunization (#1) 07/23/202508/23, 08/25/2023, 09/02/2022, Additional history exists SARS-COV-2 Immunization ( season) 2025 09/18/2024, 09/02/2022, 10/23/2021, Additional history exists Down Syndrome: TSH Level 05/29/2026 025, 09/08/2024, 08/31/2023, Additional history exists Down Syndrome: Complete Blood Count 06/22/2026 06/22/2025, 05/29/2025, 10/17/2024, Additional history exists Down Syndrome: Iron Studies 06/22/2026 08/0 11/2024, 06/22/2025, 06/22/2025 Colonoscopy 04/02/2027 04/02/2017 Colorectal Cancer Screening 04/02/2027 DTaP/Tdap/Td Immunization Discontinued 11/04/2018 TdaP Immunization Completed 11/04/2018 Cervical Cancer Screening (CCS) Discontinued Hepatitis B Immunization Aged Out No longer eligible based on patient's age to complete this topic Human Papillomavirus (HPV) Immunization Aged Out No longer eligible based on patient's age to complete this topic Meningococcal Immunization (ACWY) Aged Out No longer eligible based on patient's age to complete this topic Pap Smear Discontinued Rotavirus Immunization Aged Out No lo nger eligible based on patient's age to complete this topic Procedures Procedure Name Priority Date/Time Associated Diagnosis Comments VITAMIN D, 25 HYDROXY TOTAL 07/10/2025 12:00 AM CDT CBC WITH AUTO DIFFERENTIAL Routine 06/22/2025 9:54 AM CDT Thrombocytosis PERIPHERAL BLOOD, FLOW CYTOMETRY Routine 06/22/2025 9:54 AM CDT Thrombocytosis IRON,TRANSFERN,CALC.TIB C,%SAT Routine 06/22/2025 9:54 AM CDT Thrombocytosis ERYTHROPOIETIN, SERUM, EPO Routine 06/22/2025 9:54 AM CDT Thrombocytosis RHEUMATOID FACTOR (RFQT) QUANT Routine 06/22/2025 9:54 AM CDT Thrombocytosis ERYTHROCYTE SEDIMENTATION RATE (ESR) Routine 06/22/2025 9:54 AM CDT Thrombocytosis CYCLIC CITRULLINATED PEPTIDE 3 Routine 06/22/2025 9:54 AM CDT Thrombocytosis C-REACTIVE PROTEIN (CRP) QUANT Routine 06/22/2025 9:54 AM CDT Thrombocytosis ANTINUCLEAR ANTIBODY (SITA), TITER IF POS Routine 06/22/2025 9:54 AM CDT Thrombocytosis IMMUNOFIXATION W/ ELECTROPHORESIS SERUM Routine 06/22/2025 9:54 AM CDT Thrombocytosis FREE KAPPA & LAMBDA LIGHT CHAINS SERUM Routine 06/22/2025 9:54 AM CDT Thrombocytosis FERRITIN Routine 06/22/2025 9:54 AM CDT Thrombocytosis FOLIC ACID (FOLATE) Routine 06/22/2025 9 :54 AM CDT Thrombocytosis CMP (COMPREHENSIVE METABOLIC PANEL) Routine 06/22/2025 9:54 AM CDT Thrombocytosis COMPLETE BLOOD COUNT (CBC) WITH DIFF Routine 06/22/2025 9:54 AM CDT Thrombocytosis THYROID STIMULATING HORMONE (TSH) 05/29/2025 12:00 AM CDT MAMMOGRAM BILATERAL GENERIC 02/29/2024 12:00 AM CDT from Last 3 Months or Most Recently Relevant to Health Maintenance Results * VITAMIN D, 25 HYDROXY TOTAL (07/10/2025 12:00 AM CDT) 07/10/2025 Provider Scan CHEMISTRY ORDERABLES Final Resul t SCAN * CYCLIC CITRULLINATED PEPTIDE 3 (06/22/2025 9:54 AM CDT) Pathologist [facility] CCP IGG <0.5 <3.0 U/mL 06/22/2025 3:5 6 PM CDT [facility] Blood Venipuncture / Unknown 06/22/2025 9:54 AM CDT 06/22/2025 9:54 AM CDT Narrative [facility] - 06/22/2025 3:56 PM CDT Antibody testing was performed by multiplex flow immunoassay on the Fandeavor platform. [facility] IMMUNOLOGY ORDERABLES Fin al Result Performing Organization Address [facility] Co de Phone Number [facility] [address] [place] [address], [place] * (ABNORMAL) IRON,TRANSFERN,CALC.TIBC,%SAT (06/22/2025 9:54 AM CDT) Pathologist [facility] IRON 81 25 - 156 mcg/dL 06/22/2025 10:49 AM CDT [facility] TRANSFERRIN 206 173 - 360 mg/dL 06/22/2025 10:49 AM CDT [facility] TIBC, CALCULATED 258(L) 265 - 497 mcg/dL 06/22/2025 10:49 AM CDT [facility] % SATURATION * 31 15 - 62 % 06/22/2025 10:49 AM CDT [facility] Blood Venipuncture / Unknown 06/22/2025 9:54 AM CDT 06/22/2025 9:54 AM CDT [facility] PAC CHEMISTRY ORDERABLES Nidia l Result Performing Organization Address City/[facility] Co de Phone Number [facility] [address] [place] [address] * ERYTHROPOIETIN, SERUM, EPO (06/22/2025 9:54 AM CDT) Pathologist [facility] ERYTHROPOIETIN, SERUM 13.3 2.6 - 18.5 mIU/mL 06/26/2025 3:55 PM CDT [facility] Comment: Test Performed by: [facility] [address] [id number] Tail Board Worker: Krysta Evangelista Ph.D.; CLIA# [id number] Blood Venipuncture / Unknown 06/22/2025 9:54 AM CDT 06/22/2025 9:54 AM CDT us Mary Spears PAC LAB SEND OUTS Final Res ult [facility] * (ABNORMAL) CBC WITH AUTO DIFFERENTIAL (06/22/2025 9:54 AM CDT) Pathologist [facility] WBC 5.14 4.00 - 12.00 10(3)/mcL 06/22/2025 10:27 AM CDT [facility] RBC 4.46 3.80 - 5.30 10(6)/mcL 06/22/2025 10:27 AM CDT [facility] HEMOGLOBIN (HGB) 15.1 12.0 - 15.8 g/dL 06/22/2025 10:27 AM CDT [facility] HEMATOCRIT (HCT) 46.1 36.0 - 47.0 % 06/22/2025 10:27 AM CDT [facility] MCV 103.4(H) 82.0 - 96.0 fL 06/22/2025 10:27 AM CDT [facility] MCH 33.9 26.0 - 34.0 pg 06/22/2025 10:27 AM CDT [facility] MCHC 32.8 31.0 - 36.0 g/dL 06/22/2025 10:27 AM CDT [facility] PLATELET COUNT 307 140 - 440 10(3)/mcL 06/22/2025 10:27 AM CDT [facility] RDW 15.5 11.8 - 15.5 % 06/22/2025 10:27 AM CDT [facility] MPV 10.7 9.7 - 12.4 fL 06/22/2025 10:27 AM CDT [facility] NEUTROPHILS 55.7 47.0 - 73.0 % 06/22/2025 10:27 AM CDT [facility] LYMPHOCYTES 32.7 18.0 - 42.0 % 06/22/2025 10:27 AM CDT [facility] MONOCYTES 6.6 4.0 - 12.0 % 06/22/2025 10:27 AM CDT [facility] EOSINOPHILS 1.9 0.0 - 5.0 % 06/22/2025 10:27 AM CDT [facility] BASOPHILS 2.5(H) 0.0 - 1.0 % 06/22/2025 10:27 AM CDT [facility] IMMATURE GRANULOCYTE 0.6(H) 0.0 - 0.4 % 06/22/2025 10:27 AM CDT [facility] Comment:Immature Granulocyte s includes Metamyelocytes, Myelocytes, and Promyelocytes. ABSOLUTE NEUTROPHILS 2.86 1.60 - 7.70 10(3)/mcL 06/22/2025 10:27 AM CDT [facility] ABSOLUTE LYMPHOCYTES 1.68 1.30 - 3.20 10(3)/mcL 06/22/2025 10:27 AM CDT [facility] ABSOLUTE MONOCYTES 0.34 0.20 - 1.00 10(3)/mcL 06/22/2025 10:27 AM CDT [facility] ABSOLUTE EOSINOPHIL 0.10 0.00 - 0.40 10(3)/mcL 06/22/2025 10:27 AM CDT [facility] ABSOLUTE BASOPHILS 0.13(H) 0.00 - 0.10 10(3)/mcL 06/22/2025 10:27 AM CDT [facility] ABSOLUTE IMMATURE GRANULOCYTE 0.03 0.00 - 0.03 10 (3) mcL. 06/22/2025 10:27 AM CDT [facility] NRBC PER 100 WBC 0 06/22/20 25 10:27 AM CDT [facility] Blood Venipuncture / Unknown 06/22/2025 9:54 AM CDT 06/22/2025 9:54 AM CDT Maryissa Separs PAC HEMATOLOGY ORDERABLES Fin al Result [facility] [address] [place] [address] * PERIPHERAL BLOOD, FLOW CYTOMETRY (06/22/2025 9:54 AM CDT) FINAL DIAGNOSIS Peripheral blood, flow cytometric analysis: - No abnormal lymphoid or progenitor cell population is detected. 6:35 PM CDT [facility] at 1835 CDT Specimen Source Received in an EDTA anticoagulated tube is 1 mL peripheral blood. 6:35 PM CDT [facility] Microscopic Description Peripheral blood smear review shows a heterogeneous WBC population. Specimen processed and evaluated at [facility], [place], [place]. This document was completed utilizing speech recognition software. Grammatical errors, random word insertions, pronoun errors, and incomplete sentences are an occasional consequence of this system due to software limitations, ambient noise, and hardware issues. Any formal questions or concerns about the content, text or information contained within the body of this dictation should be directly addressed to the provider for clarification. 6:35 PM CDT [facility] Immunophenotypic Findings Flow cytometric analysis shows a heterogeneous cellular population. Blasts are not increased. Immunophenotypically unremarkable T-cells (CD4:CD8 = 1.6) and polyclonal B-cells are present. CELL POPULATIONS: 39% granulocytes, 4% monocytes, 19% T-cells, 1% B-cells, <1% blasts. 6:35 PM CDT [facility] Phenotyping Markers Utilized Flow markers performed (23): CD2, CD3, CD4, CD5, CD7, CD8, CD10, CD13, CD15, CD19, CD20, CD33, CD34, CD38, CD45, CD56, CD117, CD123, CD200, kappa, lambda, HLA-DR, TCR gamma/delta This test was developed and its performance characteristics determined by [facility]. It has not been cleared or approved by the U.S. Food and Drug Administration. 6:35 PM CDT [facility] Case Report Flow Cytometry Repor t Case: [id number] Authorizing Provider: Mary Spears PAC Collected: 06/22/2025 09:54 AM Ordering Location: [facility] Received: 06/22/2025 09:54 AM [facility] Pathologist: Geronimo Bui MD Specimen: Blood 6:35 PM CDT [facility] Blood BLOOD SPECIMEN / Unknown Venipuncture / Unknown 06/22/2025 9:54 AM CDT 06/22/2025 9:54 AM CDT us Mary Spears PAC PATHOLOGY/CYTOLOGY ORDERA BLES Final Result [facility] [address] [place] [address], [place] * (ABNORMAL) FREE KAPPA & LAMBDA LIGHT CHAINS SERUM (06/22/2025 9:54 AM CDT) Free [place] Lt Chn 51.06(H) 3.30 - 19.40 mg/L 06/25/2025 11:04 AM CDT [facility] Free Lambda Lt Chn 40.58(H) 5.71 - 26.30 mg/L 06/25/2025 11:04 AM CDT [facility] free fede grace ratio 1.26 0.26 - 1.65 06/25/2025 11:04 AM CDT [facility] Blood Venipuncture / Unknown 06/22/2025 9:54 AM CDT 06/22/2025 9:54 AM CDT [facility] PAC CHEMISTRY ORDERABLES Nidia l Result [facility] [address] [place] [address], * (ABNORMAL) ERYTHROCYTE SEDIMENTATION RATE (ESR) (06/22/2025 9:54 AM CDT) ESR (SED RATE, ERYTHROCYTE SEDIMENTATION RATE) 43(H) <30 mm/h 06/22/2025 10:50 AM CDT [facility] Comment: Patients presenting with increased level of fibrinogen, gamma globulins, or abnormally shaped RBCs could affect the results for the erythrocyte sedimentation rate (ESR). Results should be clinically correlated. Blood Venipuncture / Unknown 06/22/2025 9:54 AM CDT 06/22/2025 9:54 AM CDT [facility] PAC HEMATOLOGY ORDERABLES Fin al Result Performing Organization Address City/[facility]/ZIP Co de Phone Number [facility] [address] [place] [address] * RHEUMATOID FACTOR (RFQT) QUANT (06/22/2025 9:54 AM CDT) RHEUMATOID FACTOR QT <13 <30 IU/mL 06/22/2025 10:42 AM CDT [facility] Blood Venipuncture / Unknown 06/22/2025 9:54 AM CDT 06/22/2025 9:54 AM CDT Narrative [facility] - 06/22/2025 10:42 AM CDT RHEUMATOID FACTORS CAN BE FOUND IN RHEUMATOID ARTHRITIS, SYPHILIS, VIRAL INFECTIONS, LEPROSY, CHRONIC LIVER DISEASE, NEOPLASMS, AND OTHER INFLAMMATORY CONDITIONS. RF PREVALENCE ALSO INCREASES WITH AGE. THUS A POSITIVE TEST IS NOT RESTRICTED TO RA. CONVERSELY, A NEGATIVE TEST DOES NOT RULE OUT RA, RHEUMATOID FACTORS ARE NOT DETECTABLE IN 10% OF ADULTS WITH THE DISEASE. [facility] Spears PAC CHEMISTRY ORDERABLES Nidia l Result [facility] [address] [place] [address] * (ABNORMAL) IMMUNOFIXATION W/ ELECTROPHORESIS SERUM (06/22/2025 9:54 AM CDT) TOTAL PROTEIN 7.3 6.0 - 8.0 g/dL 06/26/2025 12:47 PM CDT [facility] % ALBUMIN 47.6(L) 55.8 - 66.7 % 06/26/2025 12:47 PM CDT [facility] ALBUMIN SERUM 3.5 2.5 - 5.4 g/dL 06/26/2025 12:47 PM CDT [facility] % ALPHA 1 GLOBULIN 4.0 2.9 - 4.9 % 06/26/2025 12:47 PM CDT [facility] ALPHA 1 0.3 0.2 - 0.4 g/dL 06/26/2025 12:47 PM CDT [facility] % ALPHA 2 GLOBULIN 12.6(H) 7.1 - 11.8 % 06/26/2025 12:47 PM CDT [facility] ALPHA 2 0.9 0.5 - 1.0 g/dL 06/26/2025 12:47 PM CDT [facility] % BETA 17.9(H) 8.4 - 13.1 % 06/26/2025 12:47 PM CDT [facility] BETA-GLOBULIN 1.3(H) 0.5 - 1.1 g/dL 06/26/2025 12:47 PM CDT [facility] % GAMMA GLOBULIN 17.8 11.1 - 18.8 % 06/26/2025 12:47 PM CDT [facility] GAMMA 1.3 0.7 - 1.5 g/dL 06/26/2025 12:47 PM CDT [facility] IMMUNOGLOBULIN G 1,359 552 - 1,631 mg/dL 06/26/2025 12:47 PM CDT [facility] IMMUNOGLOBULIN A 479 69 - 517 mg/dL 06/26/2025 12:47 PM CDT [facility] IMMUNOGLOBULIN M 88 33 - 293 mg/dL 06/26/2025 12:47 PM CDT [facility] INTERPRETATION SERUM No abnormal protein band is detected by serum protein electrophoresis. Serum immunofixation electrophoresis is negative for monoclonal immunoglobulins. Reviewed by Maryann Al, Ph.D. 06/26/2025 12:47 PM CDT [facility] A/G RATIO, SERUM 0.9 06/26/20 12:47 PM CDT [facility] [facility] Blood Venipuncture / Unknown 06/22/2025 9:54 AM CDT 06/22/2025 9:54 AM CDT Narrative [facility] - 06/26/2025 12:47 PM CDT Reviewed by Derek Camarillo M.D. [facility] PAC CHEMISTRY ORDERABLES Nidia l Result [facility] [address] [place] [address], * FOLIC ACID (FOLATE) (06/22/2025 9:54 AM CDT) [facility] FOLATE 8.1 7.0 - 31.4 ng/mL 06/22/2025 11:17 AM CDT [facility] IS THE PATIENT REQUIRED TO BE FASTING? No 06/22/2025 11:17 AM CDT [facility] Blood Venipuncture / Unknown 06/22/2025 9:54 AM CDT 06/22/2025 9:54 AM CDT [facility] PAC CHEMISTRY ORDERABLES Nidia l Result [facility] [address] [place] [address] * (ABNORMAL) FERRITIN (06/22/2025 9:54 AM CDT) FERRITIN 229(H) 5 - 204 ng/mL 06/22/2025 11:04 AM CDT [facility] Blood Venipuncture / Unknown 06/22/2025 9:54 AM CDT 06/22/2025 9:54 AM CDT us Mary Spears PAC CHEMISTRY ORDERABLES Nidia l Result [facility] [address] [place] [address] * CMP (COMPREHENSIVE METABOLIC PANEL) (06/22/2025 9:54 AM CDT) Pathologist [facility] SODIUM 142 136 - 145 mmol/L 06/22/2025 10:49 AM CDT [facility] POTASSIUM 4.0 3.5 - 5.1 mmol/L 06/22/2025 10:49 AM CDT [facility] CHLORIDE 104 98 - 107 mmol/L 06/22/2025 10:49 AM CDT [facility] CO2, VENOUS 25 22 - 30 mmol/L 06/22/2025 10:49 AM CDT [facility] ANION GAP 17.0 <18.0 mmol/L 06/22/2025 10:49 AM CDT [facility] GLUCOSE 90 70 - 99 mg/dL 06/22/2025 10:49 AM CDT [facility] BUN 10 10 - 20 mg/dL 06/22/2025 10:49 AM CDT [facility] CREATININE, BLOOD 0.74 0.60 - 1.00 mg/dL 06/22/2025 10:49 AM CDT [facility] BUN/CREATININE RATIO 14 12 - 20 ratio 06/22/2025 10:49 AM CDT [facility] TOTAL PROTEIN 8.0 6.0 - 8.0 g/dL 06/22/2025 10:49 AM CDT [facility] ALBUMIN 4.2 3.5 - 5.0 g/dL 06/22/2025 10:49 AM CDT [facility] A/G RATIO 1.1 1.0 - 2.2 06/22/2025 10:49 AM CDT [facility] CALCIUM 9.3 8.7 - 10.5 mg/dL 06/22/2025 10:49 AM CDT [facility] T BILI 0.4 0.2 - 1.2 mg/dL 06/22/2025 10:49 AM CDT [facility] SGOT (AST) 25 <43 U/L 06/22/2025 10:49 AM CDT [facility] SGPT (ALT) 17 <56 U/L 06/22/2025 10:49 AM CDT [facility] ALKALINE PHOSPHATASE 117 40 - 150 U/L 06/22/2025 10:49 AM CDT [facility] IS THE PATIENT REQUIRED TO BE FASTING? No 06/22/2025 10:49 AM CDT [facility] GFR, ESTIMATED >60 >=60 06/22/2025 10:49 AM CDT [facility] Comment: Creatinine Clearance is the preferred criteria for selecting drug dose adjustments in renally impaired patients. The GFR is provided as additional pertinent clinical information. GFR is reported in mL/min/1.73 sq m. Calculation based on the Chronic Kidney Disease Epidemiology Collaboration (CKD- EPI) equation refit without adjustment for race. GFR, EST. >60 >=60 025 10:49 AM CDT [facility] GFR, EST. NONAFRICAN >60 >=60 06/22/2025 10:49 AM CDT [facility] Blood Venipuncture / Unknown 06/22/2025 9:54 AM CDT 06/22/2025 9:54 AM CDT us Mary Kelsey Spears PAC CHEMISTRY ORDERABLES Nidia l Result [facility] [address] [place] [address] * (ABNORMAL) C-REACTIVE PROTEIN (CRP) QUANT (06/22/2025 9:54 AM CDT) Pathologist [facility] C-REACTIVE PROTEIN 1.52(H) <0.50 mg/dL 06/22/2025 10:49 AM CDT [facility] Blood Venipuncture / Unknown 06/22/2025 9:54 AM CDT 06/22/2025 9:54 AM CDT [facility] PAC CHEMISTRY ORDERABLES Nidia l Result Performing Organization Address City/[facility]/ZIP Co de Phone Number [facility] [address] [facility] [place] [address] * ANTINUCLEAR ANTIBODY (SITA), TITER IF POS (06/22/2025 9:54 AM CDT) [facility] SITA SCREEN Negative Negative titer 06/25/2025 2:38 PM CDT [facility] Comment: Antinuclear autoantibodies not detected by IFA at a 1:80 screening dilution of HEp-2 cells. SITA TITER Not Applicable Negative, See comment, Not Applicable titer 06/25/2025 2:38 PM CDT [facility] Comment: Antinuclear autoantibodies not detected by IFA at a 1:80 screening dilution of HEp-2 cells. SITA PATTERN NOT APPLICABLE 06/25/2025 2:38 PM CDT [facility] Blood Venipuncture / Unknown 06/22/2025 9:54 AM CDT 06/22/2025 9:54 AM CDT [facility] PAC IMMUNOLOGY ORDERABLES Fin al Result Performing Organization Address City/[facility]/ZIP Co de Phone Number [facility] [address] [place] [address], [place] * THYROID STIMULATING HORMONE (TSH) (05/29/2025 12:00 AM CDT) 05/29/2025 Usha Pappas PAC CHEMISTRY ORDERAB LES Final Result SCAN * MAMMOGRAM BILATERAL MISCELLANEOUS (02/29/2024 12:00 AM CDT) 02/29/2024 Provider Scan IMG MAMMO ORDERABLES Final Resul t SCAN from Last 3 Months or Most Recently Relevant to Health Maintenance Insurance MEDICARE [place]ICAID [place] Care Teams Glove Finisher Relationship Specialty Start Date End Date Yossi Cummings MD PCP - General Internal Medicine 01/13/20
== END 2025-09-13 09:08 | disposition home or self-care (01) ==
LOC: CHSIMG 09:14
PROVIDERS: PCP Nurse Practitioner; Visit Provider Nurse Practitioner
DX: R92.2 Inconclusive mammogram (principal)
CPT/HCPCS: 99199